=== PATIENT | female | born 1990 | race African-American/Black ===

== ENCOUNTER 2024-03-31 01:00 | Emergency (ER) | payer OTHER, SELFPAY ==
[2024-03-31 01:05] VITALS: BP 143/103; PULSE 104; TEMP 36.9; O2SAT 100; BMI 39.6
--- NOTE | 2024-03-31 01:18 | PC.NURSE ---
Pt was seen at [facility] yesterday for right thumb injury, had radiology fdone and splint placed. Pt reports worsening swelling and bruising. Pt able to move thumb, however painful. Good cap refill in all fingers on right hand.
[2024-03-31] MEDS: HYDROCODONE/ACET 5-325 MG TABLET 1 TAB PO (01:44)
[2024-03-31 01:48] VITALS: BP 138/96; PULSE 98; O2SAT 99
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
== END 2024-03-31 01:48 | disposition home or self-care (01) ==
PROVIDERS: Emergency Provider Student in an Organized Health Care Education/Training Program
DX: S62.501A Fracture of unspecified phalanx of right thumb, initial encounter for closed fracture (principal); X58.XXXA Exposure to other specified factors, initial encounter
CPT/HCPCS: 99283

== ENCOUNTER 2025-11-24 14:16 | Emergency (ER) | payer OTHER, SELFPAY ==
--- OUTSIDE RECORDS SUMMARY | 2025-08-16 05:15 | XMS_ITS ---
Author Organization [facility] Address [address] [place] [address] Care Team Providers Care Regional Manager Name Role Phone Kimberly Goddard Primary Care Provider [phone] Adeola Clinton Unavailable [phone] REASON FOR VISIT pap Encounters Encounter Location Date Provider Diagnosis [facility] [address] [place] [address] 08/16/2025 Adeola Clinton Plan Of Treatment Next Appt Details Provider Name:Ruth Mo, 11/30/2025 02:30:00 PM, [address] [place], [address], Provider Name:Adeola Clinton, 03/09/2026 11:00:00 AM, [address] [place], [address], Progress Notes * ANGELLA THAYER JDOB: (35 yo F)Acc No.[id number]:08/16/2025 Progress Notes Patient: Terrell VARGAS ANGELLA Dunne Account Number:[id number]:?Adeola HoangOB:1990???Age:35 Y???Sex: FemaleDate:08/16/2025Phone:[phone]:[address] [id number]:Kimberly L Nitza Subjective: * Chief Complaints: * P ap Billing Information: * Procedure Codes: * Electronic signature of Adeola Clinton NP on 11/24/2025 at 02:46 PM ESTSign off status: Pending * Provider: Allegra Clinton Date: 0 08/16/2025 Generated for Printing/Faxing/eTransmitting on:?11/24/2025 02:46 PM EST
--- OUTSIDE RECORDS SUMMARY | 2025-08-18 03:00 | XMS_ITS ---
Author Organization [facility] Address [address] [place] [address] Care Team Providers Care Appointment Specialist Name Role Phone Kimberly Goddard Primary Care Provider Adeola Clinton Unavailable [phone] REASON FOR VISIT PAP Encounters Encounter Location Date Provider Diagnosis [facility] [address] [place] [address] 08/18/2025 Adeola Clinton Plan Of Treatment Next Appt Details Provider Name:Ruth Mo, 11/30/2025 02:30:00 PM, [address] [place], [address], Provider Name:Adeola Clinton, 03/09/2026 11:00:00 AM, [address] [place], [address], Progress Notes * ANGELLA THAYER JDOB: (35 yo F)Acc No.[id number]:08/18/2025 Progress Notes Patient: Terrell LEAVITTHUY ANGELLA Dunne Account Number:[id number]:?Adeola HoangOB:1990???Age:35 Y???Sex: FemaleDate:08/18/2025Phone:[phone]:[address] [id number]:Kimberly L Nitza Subjective: * Chief Complaints: * P AP Billing Information: * Procedure Codes: * Electronic signature of Adeola Clinton NP on 11/24/2025 at 02:45 PM ESTSign off status: Pending * Provider: Allegra Clinton Date: 0 08/18/2025 Generated for Printing/Faxing/eTransmitting on:?11/24/2025 02:45 PM EST
--- OUTSIDE RECORDS SUMMARY | 2025-08-18 09:30 | XMS_ITS ---
Author Organization [facility] Address [address] [place] [address] Care Team Providers Care Fleet Service Manager Name Role Phone Kimberly Goddard Primary Care Provider Adeola Clinton Unavailable [phone] REASON FOR VISIT PAP Encounters Encounter Location Date Provider Diagnosis [facility] [address] [place] [address] 08/18/2025 Adeola Clinton Plan Of Treatment Next Appt Details Provider Name:Ruth Mo, 11/30/2025 02:30:00 PM, [address] [place], [address], Provider Name:Adeola Clinton, 03/09/2026 11:00:00 AM, [address] [place], [address], Progress Notes * ANGELLA THAYER JDOB: (35 yo F)Acc No.[id number]:08/18/2025 Progress Notes Patient: Terrell LEAVITTHUY ANGELLA Dunne Account Number:[id number]:?Adeola HoangOB:1990???Age:35 Y???Sex: FemaleDate:08/18/2025Phone:[phone]:[address] [id number]:Kimberly L Nitza Subjective: * Chief Complaints: * P AP * Electronic signature of Adeola Clinton FILTERATION OPERATOR on 11/24/2025 at 02:45 PM ESTSign off status: Pending * Provider: Allegra Clinton Date: 0 08/18/2025 Generated for Printing/Faxing/eTransmitting on:?11/24/2025 02:45 PM EST
--- OUTSIDE RECORDS SUMMARY | 2025-08-20 08:00 | XMS_ITS ---
Author Organization [facility] Address [address] [place] [address] Care Team Providers Care Fish Farm Laborer Name Role Phone Kimberly Goddard Primary Care Provider Adeola Clinton Unavailable [phone] Kamryn Boles Unavailable [phone] REASON FOR VISIT pap annual Encounters Encounter Location Date Provider Diagnosis [facility] [address] [place] [address] 08/20/2025 Kamryn Boles Plan Of Treatment Next Appt Details Provider Name:Ruth Mo, 11/30/2025 02:30:00 PM, [address], [place], [address], Provider Name:Adeola Clinton, 03/09/2026 11:00:00 AM, [address] [place], [address], Progress Notes * ANGELLA THAYER JDOB: (35 yo F)Acc No.[id number]:08/20/2025 Progress Notes Patient: Terrell VARGAS ANGELLA Vibha Account Number:[id number] Provider:Sudha Boles DODOB:1990 ???Age:35 Y???Sex:FemaleDate:08/20/2025Phone:[phone]:[address], [place]-[id number]:Kimberly Goddard Subjective: * Chief Complaints: * P ap annual * Electronic signature of Kamryn Boles DO on 11/24/2025 at 02:45 PM ESTSign off status: Pending * Appointment Provider: Jaylin Boles DO Date: 0 08/20/2025 Generated for Printing/Faxing/eTransmitting on:?11/24/2025 02:45 PM EST
--- OUTSIDE RECORDS SUMMARY | 2025-09-03 06:30 | XMS_ITS ---
Author Organization [facility] Address [address] [place] [address] Care Team Providers Care Rotary Engine Assembler Name Role Phone Kimberly Goddard Primary Care Provider Adeola Clinton Unavailable [phone] REASON FOR VISIT my risk testing Encounters Encounter Location Date Provider Diagnosis [facility] [address] [place] [address] 09/03/2025 Adeola Clinton Plan Of Treatment Next Appt Details Provider Name:Ruth Mo, 11/30/2025 02:30:00 PM, [address] [place], [address], Provider Name:Adeola Clinton, 03/09/2026 11:00:00 AM, [address] [place], [address], Progress Notes * ANGELLA THAYER JDOB: (35 yo F)Acc No.[id number]:09/03/2025 Progress Notes Patient: Terrell VARGAS ANGELLA Dunne Account Number:[id number]:?Aedola HoangOB:1990???Age:35 Y???Sex: FemaleDate:09/03/2025Phone:[phone]:[address], [place]-[id number]:Kimberly Goddard Subjective: * Chief Complaints: * M y risk testing Billing Information: * Procedure Codes: * Electronic signature of Adeola Clinton NP on 11/24/2025 at 02:45 PM ESTSign off status: Pending * Provider: Allegra Clinton Date: Generated for Printing/Faxing/eTransmitting on:?11/24/2025 02:45 PM EST
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
[2025-11-24 14:22] VITALS: BP 117/99; PULSE 94; TEMP 36.8; O2SAT 100; BMI 40.4
--- OUTSIDE RECORDS SUMMARY | 2025-11-24 14:45 | XMS_ITS | Clinical Summary ---
Author Organization [facility] Address [address] [place] [address], [address] [place] [address] Care Team Providers Care Electrical Sign Wirer Helper Name Role Phone Unavailable Primary Care Provider Unavailabl e Social History Tobacco UseTypesPacks/DayYears UsedDateSmoking Tobacco: Never Assessed CommentsUnknownSex and Gender InformationValueDate RecordedSex Assigned at Not on fileLegal LxcKqoiaj12/21/2015 5:26 PM EDTGender IdentityNot on fileSexual OrientationNot on file Plan of Treatment Not on file
--- OUTSIDE RECORDS SUMMARY | 2025-11-24 14:45 | XMS_ITS | Clinical Summary ---
Author Organization [facility] Address [address] [facility] [place] [address] Care Team Providers Care Grader Green Meat Name Role Phone Unavailable Primary Care Provider Unavailabl e Allergies Active AllergyReactionsCriticalityNoted WweyQaqsruryQhlglrsazgbIdbmcde20/02/2025 VkgzkNxswpej81/02/2025 Medications No known medications Social History Tobacco UseTypesPacks/DayYears UsedDateSmoking Tobacco: NeverSmokeless Tobacco: Never Tobacco Cessation:Counseling Given: Not Answered Alcohol UseStandard Drinks/WeekCommentsYes0 (1 standard drink = 0.6 oz pure alcohol)CommentsUnknownSex and Gender InformationValueDate RecordedSex Assigned at BirthNot on fileLegal BbbUdqdyt12/15/2023 7:12 PM EDTGender Identity Not on fileSexual OrientationNot on file Last Filed Vital Signs Vital SignReadingTime TakenCommentsBlood Rvctubge368/8206 7:41 PM EDT Dfunw39805/02/2025 7:41 PM XRFIdurmknkvll28.8 ??C (98.2 ??F)05/03/2025 7:41 PM EDTRespiratory Mgdc917105/03/2025 7:41 PM EDTOxygen Jhqnchexoo47%05/03/2025 7:41 PM EDTInhaled Oxygen Concentration--Fgezud750 kg (240 lb)05/03/2025 7:41 PM EDT Kgccad083.1 cm (5' 5 )11/14/2022 12:00 PM ESTBody Mass Index39.9411/14/2022 12:00 PM EST Plan of Treatment Not on file Insurance
--- OUTSIDE RECORDS SUMMARY | 2025-11-24 14:45 | XMS_ITS | Clinical Summary ---
Author Organization [facility] Address [address] [place] [address] Care Team Providers Care Talent Acquisition Coordinator Name Role Phone Unavailable Primary Care Provider Unavailabl e Active Problems ProblemNoted DateDiagnosed DateSuspected cervical shortening not found12/25/2011 Obesity in , eoqanlljrk77/24/2012Very young maternal age, antepartum 12/25/2011 Social History Tobacco UseTypesPacks/DayYears UsedDateSmoking Tobacco: NeverAlcohol UseStandard Drinks/WeekCommentsNo0 (1 standard drink = 0.6 oz pure alcohol)Comments UnknownSex and Gender InformationValueDate RecordedSex Assigned at BirthNot on fileLegal IiuZorcgp93/02/2012 10:13 AM ESTGender IdentityNot on fileSexual OrientationNot on file Last Filed Vital Signs Vital SignReadingTime TakenCommentsBlood Jbxzflak888/6601 9:25 AM EST Pkkkl341912/25/2011 9:25 AM ESTTemperature--Respiratory Rate--Oxygen Saturation-- Inhaled Oxygen Concentration--Rgsejk25.7 kg (204 lb 4.8 oz)12/25/2011 9:25 AM OMKKxozbj890.1 cm (5' 5 )12/25/2011 9:25 AM ESTBody Mass Gidvz602412/25/2011 9:25 AM EST Plan of Treatment Health MaintenanceDue DateLast DoneCommentsAnxiety Usxkokryv27/07/2010Depression Dsmvfbpep34/07/2010HIV Pjdbivayd80/07/2010Hepatitis C Sfljmbrma03/07/2010 DTaP,Tdap,Td Vaccine (1 - Tdap)2011Hepatitis B Vaccine (1 of 3 - 19+ 3- dose series)2011Cervical Cancer Tvgtrosuh96/07/2013HPV Vaccine (1 - 3-dose SCDM series)2019Covid-19 Vaccine (2024- season)2025Influenza Vaccine (#1)2025 Insurance
--- OUTSIDE RECORDS SUMMARY | 2025-11-24 14:46 | XMS_ITS | Patient Health Record ---
Author Organization [employer] es Address [address] [place] [address] Care Team Providers Care Beef [employer] Grazier Name Role Phone Kimberly Goddard Primary Care Provider [phone] Adeola Clinton Unavailable [phone] Alisha Rose Unavailable [phone] Kimberly Kendall Unavailable Valeria Fenton Unavailable [phone] Minisall, Kamryn Unavailable [phone] Allergies Allergen (clinical drug ingredient) Drug/Non Drug Allergy documented on EMR Reaction Allergy Type Onset Date Status amoxicillin Amoxicillin Unknown Drug Allergy ActiveLatexLatexUnknownAllergyActive Results Component Value Reference Range Flag Notes IGP,Aptima HPV,CtNg Age Gdln Reviewed date:09/07/2025 12:49:50 PM Interpretation: Performing Lab:, [facility], [address] [place] Notes/Report: Holly Barrios MD, [address] [place] [address] [place] [address] 02 [facility] [place] Performed at: <-Panic Low,>-Panic High,A-Abnormal,AA-Critical Abnormal L-Low Normal,H-High Normal,LL-Alert Low,HH-Alert High FLAG LEGEND: Criteria met, see HPV Genotype results. HPV Genotype Reflex Note 02 the use of an image guided system. This liquid based ThinPrep(R) pap test was screened with Test Methodology: Note 02 occur. cancer. Both false-positive and false-negative reports do should not be used as the sole means of detecting cervical uterine cervix. It is not a diagnostic procedure and Holyl Barrios MD, detection of premalignant and malignant conditions of the [address] [place] [address] [place] [address] The Pap smear is a screening test designed to aid in the 01 =[facility] Note: Note 02 Performed at: . 02 Brandon Stephenson, Research Environmental Engineer (ASCP) <-Panic Low,>-Panic High,A-Abnormal,AA-Critical Abnormal Performed by: 02 L-Low Normal,H-High Normal,LL-Alert Low,HH-Alert High cells (endocervical component) are present. FLAG LEGEND: [employer] Executive Director: Holly Barrios MD, Phone: [phone] Satisfactory for evaluation. Endocervical and/or squamous metaplastic [address] [place] [address] [place], [place] [id number] Specimen adequacy: 02 Age Algo ACOG Darlin... 30-65 01 Performed at: [facility] NEGATIVE FOR INTRAEPITHELIAL LESION OR MALIGNANCY. No. of containers..01 ThinPrep Vial [employer] Executive Director: Holly Barrios MD, Phone: [phone] without differentiation. DIAGNOSIS: 02 Clinician Provided Cytology Information [address], [place] [id number] risk HPV types (16,18,31,33,35,39,45,51,52,56,58,59,66,68) Performed at: =[facility] This nucleic acid amplification test detects fourteen high- TESTS RESULT FLAG UNITS REF RANGE LAB TESTS RESULT FLAG UNITS REF RANGE LAB IGP, Age Gdln Note . Pap Image GuidedNote.PAP HPV HRPositiveNegativeAAPAP HPV 16NegativeNegativePAP HPV 18,45NegativeNegativeurine (Not yet reviewed by provider) Interpretation: Performing Lab: Notes/Report: resultnegativeUrinalysis automated (Not yet reviewed by provider) Interpretation: Performing Lab: Notes/Report: Urine-Colordark yellowAppearanceclearSpecific Gravity1.025pH6.0Glucosenegative ProteinnegativeOccult BloodnegativeBilirubinnegativeUrobilinogen,Semi-Qn0.2 mg/dLNitrite, UrinenegativeKetonesnegativeWBC EsterasenegativeUrinalysis automated Reviewed date:08/04/2025 12:23:30 PM Interpretation: Performing Lab: Notes/Report: Urine-ColoryellowAppearanceclearSpecific Gravity1.025pH6.0GlucosenegativeProtein negativeOccult BloodnegativeBilirubinnegativeUrobilinogen,Semi-Qn0.2 mg/dL Nitrite, UrinenegativeKetonesnegativeWBC EsterasenegativeGNURI - Complicated Genitourinary Infection (HTRx) Reviewed date:08/05/2025 01:53:30 PM Interpretation: Performing Lab: Notes/Report:Acinetobacter gtpsydwki138.961 - 24.689 ppmAcinetobacter baumannii Not Gpppaezn95.961 - 24.689 ppmAtopobium .961 - 24.689 ppmAtopobium vaginaeNot Gdrfpbiq17.961 - 24.689 ppmBVAB 2,3 (bacterial vaginosis associated bacteria 2, 3); Mobiluncus xlb438.961 - 24.689 ppmBVAB 2,3 (bacterial vaginosis associated bacteria 2, 3); Mobiluncus sppNot Eolbdtdl42.961 - 24.689 ppmCandida albicans, parapsilosis, kdujzamgby864.000 - 30.347 ppmCandida albicans, parapsilosis, tropicalisNot Cyqxfvam86.000 - 30.347 ppmCandida glabrata (Nakaseomyces glabratus)023.000 - 31.618 ppmCandida glabrata (Nakaseomyces glabratus)Not Zdmdnhaj63.000 - 31.618 ppmCandida krusei (Pichia kudriavzevii)0 23.000 - 30.873 ppmCandida krusei (Pichia kudriavzevii)Not Zttseuhw11.000 - 30.873 ppmChlamydia .000 - 31.586 ppmChlamydia trachomatisNot Iiqpkbfx41.000 - 31.586 ppmCitrobacter drcbresh526.000 - 32.015 ppmCitrobacter freundiiNot Kijwqqsl30.000 - 32.015 ppmEnterobacter aerogenes, jwyggif089.000 - 32.290 ppmEnterobacter aerogenes, cloacaeNot Pvxvdobi50.000 - 32.290 ppm Enterococcus faecalis, .000 - 33.043 ppmEnterococcus faecalis, faecium Not Zpqtxfnz36.000 - 33.043 ppmEscherichia hyxv226.000 - 28.500 ppmEscherichia coliNot Gcewhawt86.000 - 28.500 ppmGardnerella vlwezgsyt446.961 - 24.689 ppm Gardnerella vaginalisNot Azkulrjf72.961 - 24.689 ppmKlebsiella pneumoniae, qiujpcd785.000 - 31.865 ppmKlebsiella pneumoniae, oxytocaNot Gjyzdjdp04.000 - 31.865 ppmMegasphaera (Types 1, 2)019.961 - 24.689 ppmMegasphaera (Types 1, 2) Not Ekntsokf72.961 - 24.689 ppmMorganella mijmgnhd589.961 - 24.689 ppmMorganella morganiiNot Szbyqxvl42.961 - 24.689 ppmNeisseria bgkyczipyty646.000 - 32.587 ppm Neisseria gonorrhoeaeNot Cudybgkg59.000 - 32.587 ppmProteus mirabilis, vulgaris0 23.000 - 28.500 ppmProteus mirabilis, vulgarisNot Ohywooch34.000 - 28.500 ppm Pseudomonas mmtzbqjatp311.000 - 31.801 ppmPseudomonas aeruginosaNot Detected 23.000 - 31.801 ppmSerratia ufyirhfcsh621.000 - 31.581 ppmSerratia marcescensNot Oktgltkm39.000 - 31.581 ppmStaphylococcus aiyyxc609.000 - 31.595 ppm Staphylococcus aureusNot Qpppyojn68.000 - 31.595 ppmStreptococcus agalactiae (Group B Strep)026.000 - 32.435 ppmStreptococcus agalactiae (Group B Strep)Not Udseeqeb76.000 - 32.435 ppmStreptococcus pyogenes (Group A strep)019.961 - 24.689 ppmStreptococcus pyogenes (Group A strep)Not Clycejql00.961 - 24.689 ppm Trichomonas cmpmjaujs133.000 - 31.995 ppmTrichomonas vaginalisNot Lpkdmigs38.000 - 31.995 ppmStaphylococcus epidermidis, haemolyticus, ywzfhnrpcxa680.961 - 24.689 ppmStaphylococcus epidermidis, haemolyticus, lugdunensisNot Detected 19.961 - 24.689 ppmStaphylococcus gflznjgiusjep087.961 - 24.689 ppm Staphylococcus saprophyticusNot Hdmzgtzp05.961 - 24.689 ppmMycoplasma genitalium 019.961 - 24.689 ppmMycoplasma genitaliumNot Deshfztv12.961 - 24.689 ppm Mycoplasma ufzchdj159.961 - 24.689 ppmMycoplasma hominisNot Ybzzxbma24.961 - 24.689 ppmUreaplasma .961 - 24.689 ppmUreaplasma parvumNot Detected 19.961 - 24.689 ppmUreaplasma uvpqqugnsbe757.961 - 24.689 ppmUreaplasma urealyticumNot Vnnoioql71.961 - 24.689 ppmGNURI - Complicated Genitourinary Infection (HTRx) Reviewed date:07/30/2025 09:38:17 AM Interpretation: Performing Lab: Notes/Report:Acinetobacter wuktpqsad467.961 - 24.689 ppmAcinetobacter baumannii Not Tlczgkfw82.961 - 24.689 ppmAtopobium drruvet364.961 - 24.689 ppmAtopobium vaginaeNot Kioidtbo27.961 - 24.689 ppmBVAB 2,3 (bacterial vaginosis associated bacteria 2, 3); Mobiluncus hdl397.961 - 24.689 ppmBVAB 2,3 (bacterial vaginosis associated bacteria 2, 3); Mobiluncus sppNot Kaceumtm72.961 - 24.689 ppmCandida albicans, parapsilosis, gdxasblwiw157.000 - 30.347 ppmCandida albicans, parapsilosis, tropicalisNot Jsrltdub95.000 - 30.347 ppmCandida glabrata (Nakaseomyces glabratus)023.000 - 31.618 ppmCandida glabrata (Nakaseomyces glabratus)Not Fqqkxzpy70.000 - 31.618 ppmCandida krusei (Pichia kudriavzevii)0 23.000 - 30.873 ppmCandida krusei (Pichia kudriavzevii)Not Xotbwcnh42.000 - 30.873 ppmChlamydia hydftdsvuxn801.000 - 31.586 ppmChlamydia trachomatisNot Bayhiumy03.000 - 31.586 ppmCitrobacter hrijtucj350.000 - 32.015 ppmCitrobacter freundiiNot Ajnfnkdw17.000 - 32.015 ppmEnterobacter aerogenes, zontlhk397.000 - 32.290 ppmEnterobacter aerogenes, cloacaeNot Kfodrrbm92.000 - 32.290 ppm Enterococcus faecalis, oonslyf749.000 - 33.043 ppmEnterococcus faecalis, faecium Not Kmlcatre62.000 - 33.043 ppmEscherichia yokw813.000 - 28.500 ppmEscherichia coliNot Tikxdweo83.000 - 28.500 ppmGardnerella czoqcrxhx504.961 - 24.689 ppm Gardnerella vaginalisNot Bpnbaffr38.961 - 24.689 ppmKlebsiella pneumoniae, uzccpmb347.000 - 31.865 ppmKlebsiella pneumoniae, oxytocaNot Lvjupgfd78.000 - 31.865 ppmMegasphaera (Types 1, 2)019.961 - 24.689 ppmMegasphaera (Types 1, 2) Not Bjbkyjxn65.961 - 24.689 ppmMorganella .961 - 24.689 ppmMorganella morganiiNot Fcsjwdqq24.961 - 24.689 ppmNeisseria .000 - 32.587 ppm Neisseria gonorrhoeaeNot Jmqrogsx06.000 - 32.587 ppmProteus mirabilis, vulgaris0 23.000 - 28.500 ppmProteus mirabilis, vulgarisNot Mhtjaqyy72.000 - 28.500 ppm Pseudomonas eqnfdkwbec850.000 - 31.801 ppmPseudomonas aeruginosaNot Detected 23.000 - 31.801 ppmSerratia ftonflmknu58.69344.000 - 31.581 ppmSerratia kxbhbeabgnBgabnpqn89.000 - 31.581 ppmStaphylococcus dkrmva596.000 - 31.595 ppm Staphylococcus aureusNot Pjoomlls56.000 - 31.595 ppmStreptococcus agalactiae (Group B Strep)026.000 - 32.435 ppmStreptococcus agalactiae (Group B Strep)Not Zybockfk72.000 - 32.435 ppmStreptococcus pyogenes (Group A strep)019.961 - 24.689 ppmStreptococcus pyogenes (Group A strep)Not Jqdqifws00.961 - 24.689 ppm Trichomonas hjutfqtik654.000 - 31.995 ppmTrichomonas vaginalisNot Ejgwbyum21.000 - 31.995 ppmStaphylococcus epidermidis, haemolyticus, qrtsocgsusi755.961 - 24.689 ppmStaphylococcus epidermidis, haemolyticus, lugdunensisNot Detected 19.961 - 24.689 ppmStaphylococcus pjwqwtmztybvv928.961 - 24.689 ppm Staphylococcus saprophyticusNot Yfwyfona37.961 - 24.689 ppmMycoplasma genitalium 019.961 - 24.689 ppmMycoplasma genitaliumNot Obtouxrb27.961 - 24.689 ppm Mycoplasma fjleuth455.961 - 24.689 ppmMycoplasma hominisNot Djsxstcj35.961 - 24.689 ppmUreaplasma znqeef688.961 - 24.689 ppmUreaplasma parvumNot Detected 19.961 - 24.689 ppmUreaplasma vbzyboxrkzz767.961 - 24.689 ppmUreaplasma urealyticumNot Tsprtgrj80.961 - 24.689 ppmUrinalysis automated Reviewed date:07/28/2025 08:47:06 AM Interpretation: Performing Lab: Notes/Report: Urine-ColoryellowAppearanceclearSpecific Gravity1.010pH6.0GlucosenegativeProtein negativeOccult BloodnegativeBilirubinnegativeUrobilinogen,Semi-Qn0.2 mg/dL Nitrite, UrinenegativeKetonesnegativeWBC EsterasenegativeGNURI - Complicated Genitourinary Infection (HTRx) Reviewed date:06/30/2025 10:42:46 AM Interpretation: Performing Lab: Notes/Report:Acinetobacter riihqpwvh982.961 - 24.689 ppmAcinetobacter baumannii Not Eeistpvy93.961 - 24.689 ppmAtopobium oksjgpf606.961 - 24.689 ppmAtopobium vaginaeNot Fkibeoys74.961 - 24.689 ppmBVAB 2,3 (bacterial vaginosis associated bacteria 2, 3); Mobiluncus ukf979.961 - 24.689 ppmBVAB 2,3 (bacterial vaginosis associated bacteria 2, 3); Mobiluncus sppNot Nnszzirr64.961 - 24.689 ppmCandida albicans, parapsilosis, ulpffcxckn687.000 - 30.347 ppmCandida albicans, parapsilosis, tropicalisNot Fbsafkxh51.000 - 30.347 ppmCandida glabrata (Nakaseomyces glabratus)023.000 - 31.618 ppmCandida glabrata (Nakaseomyces glabratus)Not Npnomwms79.000 - 31.618 ppmCandida krusei (Pichia kudriavzevii)0 23.000 - 30.873 ppmCandida krusei (Pichia kudriavzevii)Not Uzrmyawz69.000 - 30.873 ppmChlamydia zqidjiesiaq742.000 - 31.586 ppmChlamydia trachomatisNot Bdwtubcc99.000 - 31.586 ppmCitrobacter xufupqdn915.000 - 32.015 ppmCitrobacter freundiiNot Lzfvqkte89.000 - 32.015 ppmEnterobacter aerogenes, njvmpur930.000 - 32.290 ppmEnterobacter aerogenes, cloacaeNot Gcfexwms76.000 - 32.290 ppm Enterococcus faecalis, iauoeqb882.000 - 33.043 ppmEnterococcus faecalis, faecium Not Bqvcssxg96.000 - 33.043 ppmEscherichia bdtq899.000 - 28.500 ppmEscherichia coliNot Ixwsonqe22.000 - 28.500 ppmGardnerella pgwkreajj242.961 - 24.689 ppm Gardnerella vaginalisNot Tlszqcjw28.961 - 24.689 ppmKlebsiella pneumoniae, jjxktbi746.000 - 31.865 ppmKlebsiella pneumoniae, oxytocaNot Jhrhhamv96.000 - 31.865 ppmMegasphaera (Types 1, 2)019.961 - 24.689 ppmMegasphaera (Types 1, 2) Not Yqyrttwb81.961 - 24.689 ppmMorganella eacxnhfn419.961 - 24.689 ppmMorganella morganiiNot Ytchptqs78.961 - 24.689 ppmNeisseria uvshilfjwik406.000 - 32.587 ppm Neisseria gonorrhoeaeNot Hhxjzkdy90.000 - 32.587 ppmProteus mirabilis, vulgaris0 23.000 - 28.500 ppmProteus mirabilis, vulgarisNot Sbzzpwyy23.000 - 28.500 ppm Pseudomonas uvzljydqxn131.000 - 31.801 ppmPseudomonas aeruginosaNot Detected 23.000 - 31.801 ppmSerratia qfogwxmgqq383.000 - 31.581 ppmSerratia marcescensNot Nrbzjnci01.000 - 31.581 ppmStaphylococcus .000 - 31.595 ppm Staphylococcus aureusNot Hvekzgwn97.000 - 31.595 ppmStreptococcus agalactiae (Group B Strep)026.000 - 32.435 ppmStreptococcus agalactiae (Group B Strep)Not Jtpflgge67.000 - 32.435 ppmStreptococcus pyogenes (Group A strep)019.961 - 24.689 ppmStreptococcus pyogenes (Group A strep)Not Cccwpcyu99.961 - 24.689 ppm Trichomonas rygnzxocg106.000 - 31.995 ppmTrichomonas vaginalisNot Lbwxswye72.000 - 31.995 ppmStaphylococcus epidermidis, haemolyticus, ololblpnqqw979.961 - 24.689 ppmStaphylococcus epidermidis, haemolyticus, lugdunensisNot Detected 19.961 - 24.689 ppmStaphylococcus dtmnpwfwyypxd259.961 - 24.689 ppm Staphylococcus saprophyticusNot Orgzmtol87.961 - 24.689 ppmMycoplasma genitalium 019.961 - 24.689 ppmMycoplasma genitaliumNot Hvzabdei08.961 - 24.689 ppm Mycoplasma obijcoz648.961 - 24.689 ppmMycoplasma hominisNot Prxqkuqm84.961 - 24.689 ppmUreaplasma zovowy878.961 - 24.689 ppmUreaplasma parvumNot Detected 19.961 - 24.689 ppmUreaplasma goxrhvqxiei895.961 - 24.689 ppmUreaplasma urealyticumNot Zdetnpkf50.961 - 24.689 ppmurine Reviewed date:06/28/2025 10:08:43 AM Interpretation:negative Performing Lab: Notes/Report: negativeresultnegativeUrinalysis automated Reviewed date:06/28/2025 10:00:31 AM Interpretation: Performing Lab: Notes/Report: Urine-ColorclearAppearanceclearSpecific Gravity1.000pH6.0GlucosenegativeProtein negativeOccult BloodnegativeBilirubinnegativeUrobilinogen,Semi-Qn0..2 mg/dL Nitrite, UrinenegativeKetonesnegativeWBC EsterasenegativeVGITS - Vaginitis (HTRx) Reviewed date:05/06/2025 11:16:52 AM Interpretation: Performing Lab: Notes/Report: Real-Time polymerase chain reaction (TaqMan qPCR) was utilized for detection for all tested organisms and resistance genes. Initiation of antimicrobial therapy prior to testing may affect results and can lead to the detection of non-living microorganisms. Detection of microbes must be correlated with current/recent antibiotic usage and patient signs and symptoms. Microbial sensitivity testing is not performed at this lab. [employer] to CFU/mL equivalent thresholds were established based on studies using known CFU/mL urine specimens performed at [facility] in [place], [place]. Testing performed by [facility] ([address], [place] [address]; CLIA# [id number]; Red Cross Executive Director Sasha Myers, PhD, [facility])). This test was developed, and its performance characteristics determined by [facility]. It has not been cleared or approved by the FDA. However, such approval/clearance is not required, as the laboratory is regulated and qualified under CLIA to perform high-complexity testing. This test is used for clinical purposes and should not be regarded as investigational or for research. *Approximate copies of target nucleic acid per &micro;L (Low: <2,500 copies/&micro;L, Moderate: 2,500-50,000 copies/&micro;L,High: >50,000 copies/&micro;L) National Infectious Disease Consensus Data Potentially effective oral antibiotics, based on presence of detected microbes, antimicrobial resistance genes, and national antimicrobial sensitivity data (see Summary Antibiogram).Atopobium vaginae0.44104.961 - 24.689 ppmAtopobium vaginaeNot Iwgamspx26.961 - 24.689 ppm BVAB 2,3 (bacterial vaginosis associated bacteria 2, 3); Mobiluncus spp0.000 19.961 - 24.689 ppmBVAB 2,3 (bacterial vaginosis associated bacteria 2, 3); Mobiluncus sppNot Dewebbzk08.961 - 24.689 ppmCandida albicans, parapsilosis, tropicalis0.47392.961 - 30.770 ppmCandida albicans, parapsilosis, tropicalisNot Emighefd04.961 - 30.770 ppmCandida glabrata (Nakaseomyces glabratus)0.78663.000 - 32.138 ppmCandida glabrata (Nakaseomyces glabratus)Not Epndbahs55.000 - 32.138 ppmCandida krusei (Pichia kudriavzevii)0.35213.000 - 32.271 ppmCandida krusei (Pichia kudriavzevii)Not Uaxqsfub93.000 - 32.271 ppmChlamydia trachomatis0.000 23.000 - 31.467 ppmChlamydia trachomatisNot Udqltfcm42.000 - 31.467 ppm Gardnerella vaginalis0.66800.961 - 24.689 ppmGardnerella vaginalisNot Detected 19.961 - 24.689 ppmHerpes simplex virus 10.02603.000 - 32.355 ppmHerpes simplex virus 1Not Fyowrapy64.000 - 32.355 ppmHerpes simplex virus 20.35136.000 - 31.433 ppmHerpes simplex virus 2Not Bmbpgooo80.000 - 31.433 ppmMegasphaera (Types 1, 2) 0.94537.961 - 24.689 ppmMegasphaera (Types 1, 2)Not Arhasthe23.961 - 24.689 ppm Neisseria gonorrhoeae0.93834.000 - 32.117 ppmNeisseria gonorrhoeaeNot Detected 23.000 - 32.117 ppmTrichomonas vaginalis0.72363.000 - 32.119 ppmTrichomonas vaginalisNot Yqdafatw71.000 - 32.119 ppmGNURI - Complicated Genitourinary Infection (HTRx) Reviewed date:12/24/2024 10:14:29 AM Interpretation: Performing Lab: Notes/Report: Real-Time polymerase chain reaction (TaqMan qPCR) was utilized for detection for all tested organisms and resistance genes. Initiation of antimicrobial therapy prior to testing may affect results and can lead to the detection of non-living microorganisms. Detection of microbes must be correlated with current/recent antibiotic usage and patient signs and symptoms. Microbial sensitivity testing is not performed at this lab. [employer] to CFU/mL equivalent thresholds were established based on studies using known CFU/mL urine specimens performed at [facility] in [place], [place]. Testing performed by [facility] ([address], [place] [address]; CLIA# [id number]; [employer] Executive Director Sasha Myers, PhD, [facility])). This test was developed, and its performance characteristics determined by [facility]. It has not been cleared or approved by the FDA. However, such approval/clearance is not required, as the laboratory is regulated and qualified under CLIA to perform high-complexity testing. This test is used for clinical purposes and should not be regarded as investigational or for research. *Approximate copies of target nucleic acid per &micro;L (Low: <2,500 copies/&micro;L, Moderate: 2,500-50,000 copies/&micro;L,High: >50,000 copies/&micro;L) National Infectious Disease Consensus Data Potentially effective oral antibiotics, based on presence of detected microbes, antimicrobial resistance genes, and national antimicrobial sensitivity data (see Summary Antibiogram).Acinetobacter baumannii0.90763.961 - 24.689 ppmAcinetobacter baumanniiNot Amasivky46.961 - 24.689 ppmAtopobium vaginae0.63056.961 - 24.689 ppmAtopobium vaginaeNot Detected 19.961 - 24.689 ppmBVAB 2,3 (bacterial vaginosis associated bacteria 2, 3); Mobiluncus spp0.41740.961 - 24.689 ppmBVAB 2,3 (bacterial vaginosis associated bacteria 2, 3); Mobiluncus sppNot Qnfhevzm16.961 - 24.689 ppmCandida albicans, parapsilosis, tropicalis0.55462.961 - 30.770 ppmCandida albicans, parapsilosis, tropicalisNot Wqzxtdtt97.961 - 30.770 ppmCandida glabrata (Nakaseomyces glabratus)0.55713.000 - 32.138 ppmCandida glabrata (Nakaseomyces glabratus)Not Fhmcnctw10.000 - 32.138 ppmCandida krusei (Pichia kudriavzevii)0.56123.000 - 32.271 ppmCandida krusei (Pichia kudriavzevii)Not Xswvbmbl29.000 - 32.271 ppm Chlamydia trachomatis0.42891.000 - 31.467 ppmChlamydia trachomatisNot Detected 23.000 - 31.467 ppmCitrobacter freundii0.92433.000 - 31.881 ppmCitrobacter freundiiNot Idiuqyww72.000 - 31.881 ppmEnterobacter aerogenes, cloacae0.000 23.000 - 31.535 ppmEnterobacter aerogenes, cloacaeNot Ugnnunde52.000 - 31.535 ppmEnterococcus faecalis, faecium0.63735.000 - 31.575 ppmEnterococcus faecalis, faeciumNot Ezgdcszy52.000 - 31.575 ppmEscherichia coli0.87068.000 - 28.500 ppm Escherichia coliNot Ykmmdxlo68.000 - 28.500 ppmGardnerella vaginalis0.71847.961 - 24.689 ppmGardnerella vaginalisNot Szwupyhn26.961 - 24.689 ppmKlebsiella pneumoniae, oxytoca0.86585.000 - 30.500 ppmKlebsiella pneumoniae, oxytocaNot Njurfgvd38.000 - 30.500 ppmMegasphaera (Types 1, 2)0.09648.961 - 24.689 ppm Megasphaera (Types 1, 2)Not Lcomsrac46.961 - 24.689 ppmMorganella morganii0.000 19.961 - 24.689 ppmMorganella morganiiNot Ouhgwtbv84.961 - 24.689 ppmNeisseria gonorrhoeae0.26144.000 - 32.117 ppmNeisseria gonorrhoeaeNot Xnmroynw01.000 - 32.117 ppmProteus mirabilis, vulgaris0.27447.000 - 28.500 ppmProteus mirabilis, vulgarisNot Aqaledac19.000 - 28.500 ppmPseudomonas aeruginosa0.90770.000 - 28.500 ppmPseudomonas aeruginosaNot Yjwqfmir12.000 - 28.500 ppmSerratia marcescens0.70479.000 - 31.204 ppmSerratia marcescensNot Iqmfhfga70.000 - 31.204 ppmStaphylococcus aureus0.01883.000 - 30.902 ppmStaphylococcus aureusNot Qcycmgay78.000 - 30.902 ppmStreptococcus agalactiae (Group B Strep)0.91446.000 - 32.222 ppmStreptococcus agalactiae (Group B Strep)Not Dlhiuwfz42.000 - 32.222 ppmStreptococcus pyogenes (Group A strep)0.92662.961 - 24.689 ppmStreptococcus pyogenes (Group A strep)Not Fbhlpdwu88.961 - 24.689 ppmTrichomonas vaginalis 0.95585.000 - 32.119 ppmTrichomonas vaginalisNot Xlwqxxim81.000 - 32.119 ppm Staphylococcus epidermidis, haemolyticus, lugdunensis0.75322.961 - 24.689 ppm Staphylococcus epidermidis, haemolyticus, lugdunensisNot Rolmrxdr73.961 - 24.689 ppmStaphylococcus saprophyticus0.53909.961 - 24.689 ppmStaphylococcus saprophyticusNot Uzgsklxo43.961 - 24.689 ppmMycoplasma genitalium0.61400.961 - 24.689 ppmMycoplasma genitaliumNot Imauvizn17.961 - 24.689 ppmMycoplasma hominis 0.46436.961 - 24.689 ppmMycoplasma hominisNot Znkqgwpu79.961 - 24.689 ppm Ureaplasma parvum0.86909.961 - 24.689 ppmUreaplasma parvumNot Ilfqcorq86.961 - 24.689 ppmUreaplasma urealyticum0.21036.961 - 24.689 ppmUreaplasma urealyticum Not Zunihgvs87.961 - 24.689 ppmurine Reviewed date:12/23/2024 05:07:43 PM Interpretation:Neg Performing Lab: Notes/Report: NegresultNegUrinalysis automated Reviewed date:12/23/2024 04:37:26 PM Interpretation: Performing Lab: Notes/Report: Urine-Colordark yellowAppearanceclearSpecific Gravity1.025pH6.0GlucosenegProtein 15Occult BloodnegBilirubinnegUrobilinogen,Semi-Qn0.2Nitrite, UrinenegKetonesneg WBC Esteraseneg Reason For Referral No Information Medications Medication SIG (Take, Route, Frequency, Duration) Notes Start Date End Date Status Ibuprofen 800 MG Tablet 1 tablet with fo od or milk as needed Orally Three times a day; Duration: 90 days 501/Not-Taking/PRNPhentermine HCl 37.5 MG Tablet1 tablet before breakfast Orally Once a dayActive Social History Tobacco Use: Social History Observation Description Date Details (start date - stop date) Current Smoker NA - NA Social History GeneralSocial InfoQuestionAnswerNotesTransition of Care:ER/UC/hospital since last office visit?NoSpecialist seen since last office visit?NoSubstance abuse/mental health issues of patient/familyPatient -Illegal Drug Usemarijuana Ability to understand healthcare/treatmentPatient:GoodSexual Hx:Had sex in the last 12 months (vaginal, oral, or anal)?Yes? withMen only? Prevention Strategies discussed:CondomsHave you ever had an STD?Yes? Other?YesLMP:12/15/2019 Social/Support Concerns:Patient:NoBehaviors affecting healthPoor/Risky Behaviors:Denies-Communication Barrier:Language Barrier?:NoFood Insecurity ScreeningSocial InfoQuestionAnswerNotesFood Insecurity ScreeningWithin the last 12 months, have you been worried about your food running out before you received money to buy more?NoWithin the last 12 months, did the food you buy not last, and you didn't have money to buy more?NoWithin the last 12 months, have you had any difficulty affording to eat balanced meals including all food groups (fruits, vegetables, protein, and whole grains)?NoDrug/Alcohol:Social Info QuestionAnswerNotesAUDIT-C (Standard)Did you have a drink containing alcohol in the past year?[id number]HH-52 (2020 Edition)1. Have you used drugs other than those required for medical reasons?No2. Do you abuse more than one drug at a time?No3. Are you always able to stop using drugs when you want to?Yes4. Have you had blackouts or flashbacks as a result of drug use? No5. Do you ever feel bad or guilty about your drug use?No6. Does your spouse (or parents) ever complain about your involvement with drugs?No7. Have you neglected your family because of your use of drugs?No8. Have you engaged in illegal activities in order to obtain drugs?No9. Have you ever experienced withdrawal symptoms (felt sick) when you stopped taking drugs?No10. Have you had medical problems as a result of your drug use (e.g., memory loss, hepatitis, convulsions, bleeding etc.)?NoResults:0Interpretation of Score:No problems reportedTobacco Use:Social InfoQuestionAnswerNotesTobacco Control (Standard) Tobacco use:Current smokerSection Notes: smoke 3 black and milds jayjay y smoke 3 black and milds jayjay y smoke 3 black and milds jayjay y daily marijuana use. daily marijuana use. daily marijuana use. daily marijuana use. daily marijuana use. daily marijuana use. daily marijuana use. daily marijuana use. daily marijuana use. daily marijuana use. daily marijuana use. daily marijuana use. daily marijuana use. daily marijuana use. daily marijuana use. daily marijuana use. smoke 3 black and milds jayjay y daily marijuana use. daily marijuana use. daily marijuana use. daily marijuana use. daily marijuana use. daily marijuana use. daily marijuana use. smoke 3 black and milds jayjay y daily marijuana use. daily marijuana use. daily marijuana use. daily marijuana use. daily marijuana use. daily marijuana use. daily marijuana use. daily marijuana use. daily marijuana use. daily marijuana use. daily marijuana use. smoke 3 black and milds jayjay y Problems Problem Type SNOMED Code ICD Code Onset Dates Problem Status W/U Status Risk Notes Problem Obesity (948782062) Other obesity (E66.8) ActiveconfirmedProblemTobacco user (425635478)Nicotine dependence, unspecified, uncomplicated (F17.200)ActiveconfirmedProblemDysmenorrhea (160521888) Dysmenorrhea (N94.6)ActiveconfirmedProblemNeck pain (56149599)Neck pain (M54.2) ActiveconfirmedProblemAmenorrhea (35311974)Amenorrhea (N91.2)Activeconfirmed ProblemChronic fatigue syndrome (28263373)Chronic fatigue (R53.82)Active confirmedProblemMissed period (47242644)Missed menses (N92.6)Activeconfirmed ProblemVaginal bleeding (249372769)Vaginal bleeding (N93.9)Activeconfirmed ProblemSciatica (32978317)Acute right-sided low back pain with right-sided sciatica (M54.41)ActiveconfirmedProblemBilateral carpal tunnel syndrome (39972917117981842)Bilateral carpal tunnel syndrome (G56.03)Activeconfirmed ProblemAcute constipation (584426081)Acute constipation (K59.00)Activeconfirmed ProblemSevere obesity (56177216898035)Severe obesity (E66.01)Activeconfirmed ProblemDental caries (71063277)Dental cavities (K02.9)ActiveconfirmedProblem Acute oral pain (K13.79)Activeconfirmed Vital Signs Heart Rate 116 /min 08/31/2025 Swcxluxovhg19.0 degrees Cikkhhulgz08/30/2025Respiratory Rate20 /min08/31/2025 Rvfibkqv66 %08/31/2025lood pressure mm Hg08/31/20252310Egjlyt84.25 in 08/31/2025lood pressure gozfplnx896 mm Hg08/31/20255465Bfcuck201 lbs08/31/2025MI 43.94 kg/m208/31/2025 Encounters Encounter Location Date Provider Diagnosis [facility] [address] [place] [address] 12/24/[address] [facility] [place] [address]/04/2025 [facility] [place] [address]/[facility] [place] [address]/[place] [id number] [facility] [place] [address]/[facility] [place] [address]/01/2025[facility] [place] [address]/03/2025[place] [address] [place] [address]/06/2025[facility] [place] [address]/[facility] for [facility] mamm[facility] for breast cancer Z12.31 ; Well female exam with routine gynecological exam Z01.419 ; Screening for STD (sexually transmitted disease) Z11.3 ; Cervical cancer screening Z12.4 and Vaginal yeast infection B37.31[facility] [place] [address]/[place] SchoenVaginal itching N89.8 and Acute constipation K59.00[facility] [place] [address]/Jennifer RichardsonNicotine dependence, unspecified, uncomplicated F17.200 ; Vaginal irritation N89.8 and Usually usescondoms for sexual activity Z78.9[facility] [place] [address]/Jennizzy VarghesearneyViral gastroenteritis A08.4 and Obesity without serious comorbidity, unspecified class, unspecifiedobesity type E66.9[facility] [place] [address]/Laura Spasic Yeast infection B37.9 and Missed menses N92.6[facility] [place] [address]/01/2025Jennifer KearneyObesity due to excess calories, unspecified class, unspecified whether serious comorbidity present E 66.09 ; Pruritic rash L28.2 and Vaginal yeast infection B37.31[facility] [address] [place] [address]/[place] SchoenScreening for STD (sexually transmitted disease) Z11.3 ; Amenorrhea N91.2 and Urinary frequency R35.0[facility] [place] [address]/12/2024 Kimberly Hatfieldevere obesity E66.01 and Generalized muscle ache M79.10[facility] [place] [address]/01/2025Adeola Clinton Vaginal itching N89.8[place] [address] [facility] [place] [address]/Kimberly Mcdaniel obesity E66.01 Assessments Encounter Date Diagnosis (ICD Code) Assessment Notes Treatment Notes Treatment Clinical Notes Section Notes 07/28/2025 Vaginal itching (ICD-10 - N89.8) Will treat patient based on clinical presentation. Instructed patient to take Diflucan as directed and to follow up if symptoms do not resolve after both doses. Patient is informed that if symptoms continue despite treatment, she may anticipate a pelvic exam at that time. Urine culture sent and will call with results. Patient verbalizes understanding.08/04/2025Vaginal itching (ICD-10 - N89.8)Urine culture obtained in office today and will send for culture. No abnormalities on urinalysis today. Will call with results and determine treatment plan if needed. Discussed possibility for pelvicexm if symtpoms persist or worsen. Patient verbalizes understanding.08/30/2025Encounter for screening mammogram for breast cancer (ICD-10 - Z12.31)Mother has history and is from triple negative breast cancer. Routine screening.05/04/2025Obesity due to excess calories, unspecified class, unspecified whether serious comorbidity present (ICD-10 - E66.09)Pt tolerating medication well with no side effects reported. OARRS report reviewed. Pt is losing weight, improvement in both weight and BMI at f/u visit. Discussed importance of intake and how many ca lories to consume a day to continue to lose weight. We also discussed increasing exercise, recommended to exercise at least 30 minutes every single day. 06/28/2025menorrhea (ICD-10 - N91.2)Discussed potential causes of amenorrhea including but not limited to hormones, thyroid issues, stress, obesity, lack of exercise, or variants of adolescents. Urine HCG negative.08/31/2025Severe obesity (ICD-10 - E66.01)Pt tolerating medication well with no side effects reported. OARRS report reviewed. Pt is losing weight, improvement in both weight and BMI at f/u visit. Discussed importance of intake and how many calories to consume a day to continue to lose weight. We also discussed increasing exercise, recommended to exercise at least 30 minutes every single day.12/23/2024Nicotine dependence, unspecified, uncomplicated (ICD-10 - F17.200)Quitting Tobacco: Care Instructions material was ahqchxmfw79/22/2025Vaginal irritation (ICD-10 - N89.8) Pt has complaints of vaginal irritation. Will start nystatin triamcinolone ointment for irritation.Pt educated on how to use and apply only to outer areas. Prescription sent. Urine culture obtained and sent and pt will be informed of results. Avoid sexual contact until results back and treated if indicated. 02/18/2025Viral gastroenteritis (ICD-10 - A08.4)Instructed patient to slowly return to a regular diet. Increase fluids and rest. May use OTC Immodium per label instructions for diarrhea. Follow up if symptoms do not improve or worsen. 02/18/2025Obesity without serious comorbidity, unspecified class, unspecified obesity type (ICD-10 - E66.9)Patient previously on Adipex has been off for 6 months. Script sent will follow up in 4 weeks.04/29/2025east infection (ICD-10 - B37.9)04/29/2025Missed menses (ICD-10 - N92.6)05/04/2025Pruritic rash (ICD-10 - L28.2)Kenalog 40mg IM given in office today for rash and itching. Patient encouraged to hold off taking Medrol dose pack she recieved at Urgent care yesterday. May continue to use Benadryl for intching. Follow up if symptoms do not improve or worsen. All questions and concerns addressed.06/28/2025Screening for STD (sexually transmitted disease) (ICD-10 - Z11.3)Culture taken in office. Discussed safe sex practices. Treatment plan is based off symptoms and exposure. Will contact you even if results regardless of results, which may take up to a week to get back. No sexual contact until we get the results back is recommended.07/02/2025Generalized muscle ache (ICD-10 - M79.10)Ibuprofen as needed for generalized aching after working 12 hour days at work. Instructed patient to take with food.07/02/2025Severe obesity (ICD-10 - E66.01)Pt tolerating medication well with no side effects reported. OARRS report reviewed. Pt is losing weight, improvement in both weight and BMI at f/u visit. Discussed importance of intake and how many calories to consume a day to continue to lose weight. We also discussed increasing exercise, recommended to exercise at least 30 minutes every single day.07/28/2025ute constipation (ICD-10 - K59.00) Discussed with patient importance of encouraging fluid intake throughout day, adding more natural fiber intake with fruits and vegetables.Take medication as prescribed.05/04/2025Vaginal yeast infection (ICD-10 - B37.31)12/23/2024Usually uses condoms for sexual activity (ICD-10 - Z78.9) test bc pt is concerned about condom breaking. Neg in office, pt VU.06/28/2025Urinary frequency (ICD-10 - R35.0)Urine analysis did not show abnormalities today in office. Urine culture will be sent to lab. Increase fluid intake. Follow hygiene guidelines such as wiping front to back, avoid using perfumed lotions, bath beads, bubble bath. Prevention tips include urinating after sexual intercourse. Follow up with our office if no improvement of symptoms. Patient verbalizes understanding.08/30/2025Well female exam with routine gynecological exam (ICD-10 - Z01.419)WWE completed today, no significant abnormalities found. External and internal exam normal and healthy. Discussed using protection during intercourse. Discussed importance of SBE, if you ever feel anarea of concern, including if your unsure to f/u in office. Abnormal findings include new lump, tenderness, changes in skin texture/dimpling, or change nipple appearance or discharge. Abnormal vaginal bleeding is also a concern, please return to office if you experience this or change in vaginal d/c. Severe abdominal pain, heavy vaginal bleeding, go to the ER. Patient verbalizes understanding.08/30/2025Screening for STD (sexually transmitted disease) (ICD-10 - Z11.3)Culture taken in office. Discussed safe sex practices. Treatment plan is based off symptoms and exposure. Will contact you even if results regardless of results, which may take up to a week to get back. No sexual contact until we get the results back is recommended.08/30/2025ervical cancer screening (ICD-10 - Z12.4)No concerns on pelvic exam, pap cytology cultures obtained via spatula and brush tools. Will call pt with results from both STI swab and pap cytology results. Pt verbalized understanding. F/U in 1 years for annual [facility] exam.08/30/2025Vaginal yeast infection (ICD-10 - B37.31)Will treat patient based on presentation. Instructed patient to take Diflucan as directed and to follow up if symptoms do not resolve after both doses. Patient is informed that if symptoms continue de spite treatment, to return to office. Patient verbalizes understanding. 12/23/2024OtherBody Mass Index: Care Instructions material was published 05/04/2025OtherBody Mass Index: Care Instructions material was published, Body Mass Index: Care Instructions material was [id number]/02/2025OtherBody Mass Index: Care Instructions material was [id number]/31/2025OtherBody Mass Index: Care Instructions material was printed Plan Of Treatment Pending Test Test Name Order Date Urinalysis automated 04/29/2025 urine 04/29/2025 MM screening mammo BI w/CAD 08/30/2025 GNURI - Complicated Genitourinary Infect ion (HTRx) 08/30/2025 Next Appt Details Provider Name:Ruth Mo, 11/30/2025 02:30:00 PM, [address] [place], [address], Provider Name:Adeola Daltonoen, 03/09/2026 11:00:00 AM, [address] [place], [address], Insurance Providers Payer Name Payer Address Payer Phone Subscriber Number Group Number Insured Name Patient Relationship to Insured Coverage Start Date Coverage End Date [employer] [place] Medicaid [address] [place] [address] [id number] Roddy THAYERf - patient is the oxuzadd4001/02/2023Wrap [facility] Care[address]ourc[address] [place] [id number], DAYSHAR Self - patient is the jumjvta3701/02/2023zCARESOURCE-termed 01/01/23[address] [place] [phone], DAYSHARSelf - patient is the [id number] CareSourcneymar [facility] [address] [place] [id number], DAYSHARSelf - patient is the rzottjo27/02/2023Dental Wrap [facility] [address] [place] [phone], DAYSHARSelf - patient is the wmxhagn1503/05/2023 Medications Administered Medication Instructions Date of Administration Dosage Notes Kenalog 540 mg Medical (General) History Medical History History ICD Code oral herpes L osteo chondral defectlevel 2undefinedamenorrheaSurgical History Surgery Date(Month/Year) LEFT KNEE SURGERY 2008 07/2017 Hospitalization History Reason Date(Month/Year) see surgical childbirth x3
[2025-11-24 14:57] LABS: Glucose Urine UA NEGATIVE (NEGATIVE)
[2025-11-24 15:01] LABS: HCG Qualitative Urine* NEGATIVE (NEGATIVE)
[2025-11-24] MEDS: CEFTRIAXONE 500 MG VIAL IM (15:12)
[2025-11-24 15:15] LABS: Cast Seen? NONE SEEN #/LPF (NONE SEEN); Crystals Seen? None Seen #/HPF (None Seen); Urine Culture Indicated NO
--- NOTE | 2025-11-24 15:47 | ED.GENADUL1 ---
HPI HPI - General Adult General Chief complaint: Vaginal Bleeding Stated complaint: VAGINAL BLEEDING Time Seen by Provider: 11/24/25 14:18 Source: patient Mode of arrival: walk-in History of Present Illness HPI narrative: Patient is a 35-year-old female presenting to the emergency department for evaluation of STD exposure and abnormal uterine bleeding. Patient states that she has been having a consistent vaginal spotting/bleeding for the last month. Her last menstrual cycle was 2 weeks ago. She is unsure if she is or not. She denies any abdominal pain or cramping. She does states she was exposed to trichomonas from her sexual partner. She denies any vaginal discharge or itchiness. No fevers or chills. No chest pain or shortness of breath. Related Data Previous Rx's ?Medication ?Instructions ?Recorded doxycycline hyclate 100 mg capsule 100 mg PO BID 7 days #14 caps 11/24/25 metronidazole 500 mg tablet 500 mg PO BID 7 days #14 tabs 11/24/25 Allergies Allergy/AdvReac Type Severity Reaction Status Date / Time amoxicillin Allergy Verified 03/31/24 01:11 Review of Systems ROS Status of ROS 10 or more systems reviewed and unremarkable except as noted in history and below PFSH PFSH Social History Little interest or pleasure in doing things: not at all Feeling down, depressed, or hopeless: not at all Exam Narrative Exam Narrative: CONSTITUTIONAL: Well-appearing, answering questions and following commands appropriately SKIN: Was warm and dry. EYES: Sclerae white. EARS, NOSE, THROAT: Moist oral mucosa. RESPIRATORY: Nonlabored respirations CARDIOVASCULAR: Normal rate and regular rhythm. There is no S3, S4, murmur, rub. GASTROINTESTINAL: Abdomen is soft, nontender, nondistended. No rebound tenderness or guarding. MUSCULOSKELETAL: No peripheral edema. NEUROLOGIC: Patient is awake and alert. Facies were symmetrical. Constitutional Vital Signs, click to edit/add: Last Vital Signs Temp 98.3 F 11/24/25 14:22 Pulse 94 H 11/24/25 14:22 Resp 20 11/24/25 14:22 BP 117/99 H 11/24/25 14:22 Pulse Ox 100 11/24/25 14:22 O2 Del Method Room Air 11/24/25 14:22 Course Vital Signs Vital signs: Vital Signs Temperature 98.3 F 11/24/25 14:22 Pulse Rate 94 H 11/24/25 14:22 Respiratory Rate 20 11/24/25 14:22 Blood Pressure 117/99 H 11/24/25 14:22 Pulse Oximetry 100 11/24/25 14:22 Oxygen Delivery Method Room Air 11/24/25 14:22 Temperature 98.3 F 11/24/25 14:22 Pulse Rate 94 H 11/24/25 14:22 Respiratory Rate 20 11/24/25 14:22 Blood Pressure 117/99 H 11/24/25 14:22 Pulse Oximetry 100 11/24/25 14:22 Oxygen Delivery Method Room Air 11/24/25 14:22 Medical Decision Making MDM Narrative Medical decision making narrative: Patient is a 35-year-old female presenting to the emergency department for evaluation of abnormal uterine bleeding and STD exposure. Her vital signs are within normal limits. She is afebrile and hemodynamically stable. Patient has a benign physical examination. In regards to her vaginal bleeding, her POC test was negative making emergent conditions such as ectopic of low likelihood. She has an appointment with her PRESCRIPTION BENEFIT SPECIALIST in 6 days. I do believe she is stable for outpatient management of her abnormal uterine bleeding. In regards to her STD exposure, she is not significantly symptomatic. She has no vaginal discharge, abdominal pain, fevers, or other signs or symptoms of PID/TOA. Urinalysis obtained which was negative for acute infection. Gonorrhea/chlamydia urine test were sent. She was empirically treated with IM ceftriaxone. She was given a prescription for doxycycline 100 mg twice daily and metronidazole 500 mg twice daily x 7 days. I do believe the patient is stable for discharge. They were instructed to follow up with her PRESCRIPTION BENEFIT SPECIALIST in 6 days. Return precautions were given including any new or worsening symptoms. Patient understands and agrees to the plan. FINAL IMPRESSION: #Acute abnormal uterine bleeding #Acute exposure to trichomonas DISPOSITION: Discharged home CONDITION: Good Lab Data Lab results reviewed: Yes I reviewed the patient's lab results Labs: Lab Results 11/24/25 Range/Units 14:22 Urine Color Lt. yellow (YELLOW) Urine Clarity Clear (CLEAR) Urine pH 6.5 (5.0-9.0) Ur Specific [place] 1.010 (1.005-1.025) Urine Protein Negative (NEG/TRACE) mg/dL Urine Glucose (UA) Negative (NEGATIVE) mg/dL Urine Ketones 15 A (NEGATIVE) mg/dL Urine Occult Blood Large A (NEGATIVE) Urine Nitrite Negative (NEGATIVE) Urine Bilirubin Negative (NEGATIVE) Urine Urobilinogen 0.2 (0.2-1.0) EU/dL Ur Leukocyte Esterase Trace A (NEGATIVE) Urine RBC 0-2 (0-2) #/HPF Urine WBC 0-2 A (NONE SEEN) #/HPF Ur Squamous Epith Cells Few A (NONE/RARE) #/LPF Urine Crystals None seen (None Seen) #/HPF Urine Bacteria Trace A (NONE SEEN) #/HPF Urine Casts None seen (NONE SEEN) #/LPF Urine Mucus None seen (NONE SEEN) Urine Trichomonas Seen A (NONE SEEN) Ur Culture Indicated? No Urine HCG, Qual Negative (NEGATIVE) Discharge Plan Discharge Chief Complaint: Vaginal Bleeding Clinical Impression: Dysfunctional uterine bleeding, Exposure to STD Patient Disposition: Home, Self-Care Time of Disposition Decision: 15:03 Condition: Good Mode of Transportation: Private Vehicle Prescriptions / Home Meds: New doxycycline hyclate 100 mg capsule 100 mg PO BID 7 Days Qty: 14 0RF metronidazole 500 mg tablet 500 mg PO BID 7 Days Qty: 14 0RF Print Language: Sierra Leonean Instructions: Abnormal (Dysfunctional) Uterine Bleeding (ED), Sexually Transmitted Diseases (ED) Additional Instructions: Follow up with your GYNO if needed Referrals: [facility] [Primary Care Provider] - 1 week Discharge Date/Time: 11/24/25 15:25
[2025-11-26 16:10] LABS: Neisseria gonorrhoeae, NAA Negative (Negative)
== END 2025-11-24 15:25 | disposition home or self-care (01) ==
PROVIDERS: Emergency Provider Student in an Organized Health Care Education/Training Program
DX: N93.8 Other specified abnormal uterine and vaginal bleeding (principal); Z20.2 Contact with and (suspected) exposure to infections with a predominantly sexual mode of transmission
CPT/HCPCS: 81001; 84703; 87491; 87591; 96372; 99284; 99285; J0696